=== PATIENT | female | born 1950 | race Caucasian/White ===

== ENCOUNTER 2019-04-02 14:33 | Emergency (ER) | payer MEDICARE, OTHER ==
[2019-04-02 14:53] VITALS: BP 128/65
[2019-04-02] MEDS ORDERED: CIPROFLOXACIN 250 MG TABLET PO STA (14:55)
--- NOTE | 2019-04-02 14:59 | ED Physician Documentation ---
PD HPI FEMALE - Stated complaint Stated Complaint: FEMALE - Chief complaint Chief Complaint: UTI - History obtained from History obtained from: Patient - History of Present Illness Timing - onset: How many days ago (3) Timing - duration: Days (3) Timing - details: Gradual onset, Still present, Waxing and waning Associated symptoms: Back pain (mild), Dysuria, Urinary frequency. No: Fever, Abdominal pain, Vaginal discharge, Genital sore/lesion, Hematuria Similar symptoms before: Diagnosis (UTIs 3 in the past year; last one was June.) Recently seen: Not recently seen Review of Systems Constitutional: reports: Chills. denies: Fever Nose: denies: Rhinorrhea / runny nose, Congestion Throat: denies: Sore throat Respiratory: denies: Cough GI: denies: Abdominal Pain, Nausea, Vomiting, Diarrhea : reports: Dysuria, Frequency. denies: Discharge Skin: denies: Rash PD PAST MEDICAL HISTORY - Past Medical History Cardiovascular: None Respiratory: None Neuro: None Endocrine/Autoimmune: None - Present Medications Home Medications: Ambulatory Orders Medication Instructions Recorded Confirmed Ciprofloxacin HCl [Cipro] 250 mg PO BID #14 tablet 04/02/19 Phenazopyridine HCl [Pyridium] 100 mg PO TID PRN #15 tablet 04/02/19 - Allergies Allergies/Adverse Reactions: Allergies Allergy/AdvReac Type Severity Reaction Status Date / Time No Known Drug Allergies Allergy Verified 04/02/19 14:42 PD ED PE NORMAL - Vitals Vital signs reviewed: Yes - General General: Alert and oriented X 3, No acute distress, Well developed/nourished - Abdomen Abdomen: Soft, Non tender - Back Back: No CVA TTP - Derm Derm: Normal color, Warm and dry - Extremities Extremities: No edema, No calf tenderness / cord - Neuro Neuro: Alert and oriented X 3, No motor deficit, Normal speech Results - Vitals Vitals: Vital Signs - 24 hr 04/02/19 14:35 Temperature 36.7 C Heart Rate 98 Respiratory 20 Rate Blood Pressure 128/65 O2 Saturation 99 Oxygen O2 Source Room air - Labs Labs: Laboratory Tests 04/02/19 15:00 Urine Color YELLOW Urine Clarity HAZY Urine pH 5.5 Ur Specific Dewitt 1.010 Urine Protein TRACE Urine Glucose (UA) >=1000 H Urine Ketones NEGATIVE Urine Occult Blood SMALL H Urine Nitrite NEGATIVE Urine Bilirubin NEGATIVE Urine Urobilinogen 0.2 (NORMAL) Ur Leukocyte Esterase SMALL H Urine RBC 0-5 Urine WBC >25 H Ur Squamous Epith Cells NONE SEEN Urine Bacteria Moderate H Ur Microscopic Review INDICATED Urine Culture Comments INDICATED PD MEDICAL DECISION MAKING - ED course Complexity details: considered differential (seems like UTI. She is allergic to sulfa and states Macrobid does not work for her in the past. This would be a good choice for possible early kidney symptoms anyway. She states Keflex gives her diarrhea. She has used Cipro with her prior infections and done well with that without side effects. We will go with Cipro.), d/w patient Departure - Departure Disposition: Home, Self Care Clinical Impression: Urinary tract infection Qualifiers: Urinary tract infection type: acute cystitis Hematuria presence: without hematuria Qualified Code(s): N30.00 - Acute cystitis without hematuria Condition: Stable Record reviewed to determine appropriate education?: Yes Instructions: ED UTI Cystitis Female Prescriptions: Ciprofloxacin HCl [Cipro] 250 mg PO BID #14 tablet Phenazopyridine HCl [Pyridium] 100 mg PO TID PRN #15 tablet PRN Reason: Abdominal Pain Comments: Stay well-hydrated. Cipro twice daily for a week for the infection. Add phenazopyridine if needed for urinary discomfort. Recheck if not improving over the next few days. We did do a urine culture and that will result in a couple of days. We will call you if we need to change antibiotics based on that. Discharge Date/Time: 04/02/19 15:21
[2019-04-02 15:09] LABS: BILIRUBIN,URINE NEGATIVE (NEGATIVE); GLUCOSE, URINE (UA) >=1000 mg/dL (NEGATIVE); KETONES,URINE (UA) NEGATIVE (NEGATIVE); LEUKOCYTE ESTERASE, URINE SMALL (NEGATIVE); NITRITE,URINE NEGATIVE (NEGATIVE); OCCULT BLOOD,URINE SMALL (NEGATIVE); PH,URINE 5.5 PH (5.0-7.5); PROTEIN,URINE TRACE mg/dL (NEGATIVE); UROBILINOGEN,URINE 0.2 (NORMAL) E.U./dL (NORMAL)
[2019-04-02 15:10] LABS: CLARITY,URINE HAZY (CLEAR)
[2019-04-02 15:18] LABS: BACTERIA,URINE Moderate /HPF (None Seen); RBC,URINE 0-5 /HPF (0-5); SQUAMOUS EPITHELIAL CELL,UR NONE SEEN (<= Few)
== END 2019-04-02 15:21 | disposition home or self-care (01) ==
LOC: ED 14:33
DX: N30.00 Acute cystitis without hematuria (principal)
CPT/HCPCS: 81001; 87077; 87086; 87181; 99283; 99284; A9270; 81003